=== PATIENT | female | born 1940 | race Caucasian/White ===

== ENCOUNTER 2016-04-23 10:39 | Inpatient (IN) | payer MEDICARE, OTHER ==
--- NOTE | ~2016-04-23 | CR93 ---
[facility] A Service of [facility] & [facility] RADIOLOGY TEXT RESULTS PATIENT: FERMIN KENDRICK I LOCATION: [facility] [id number] : 38 UNIT #: [id number] AGE: [address]: Chris Baldwin MD SEX: F ORDER DR: [id number] [facility] [address] [facility]. [place], [place] [address] [id number] I MR#: [id number] Acc #: [id number] NAME: FERMIN KENDRICK I. : 1940 SEX: F STUDY DATE/TIME: 04/23/2016 2:56 UNIT: [facility] ROOM: [facility] STUDY DESCRIPTION: CR Elbow Min 3 Views Lt Attending Physician: Chris Baldwin M.D. Ordering Physician: Chris Baldwin M.D. Primary Care Physician: Yumiko Harmon M.D. MEDICAL IMAGING REPORT This report is preliminary unless electronic signature is present EXAM Left elbow 04/23/2016 INDICATION Hardware replacement. TECHNIQUE 4 small field of view spot fluoroscopic images from an intraoperative procedure performed by Dr. Baldwin 04/23/2016 were submitted for review. FINDINGS Notes indicate that approximately 0.18 minutes of fluoroscopy time was used in the case. 4 images from the procedure was saved to the [employer] [facility] system. The images demonstrate postop changes of elbow replacement with surgical hardware anchored in the radius and ulna. Please refer to the operative report of the surgeon for further details. IMPRESSION 1. Intraoperative images from an elbow procedure performed by Dr. Baldwin 04/23/2016. Please see the operative report of the surgeon for further details. 2. Notes indicate 0.18 minutes of fluoroscopy time was used in the case. 4 images were saved to the [employer] [facility] [employer] system from the procedure. Dictated by... Froy Jensen M.D. THIS IS AN ELECTRONICALLY VERIFIED REPORT Froy Jensen M.D. at 04/24/2016 11:46 AM HARRY/jackie TD: 04/24/2016 11:03 STS. [facility] A Service of [facility] & [facility] RADIOLOGY TEXT RESULTS PATIENT: FERMIN KENDRICK I LOCATION: [place] [address] : 38 UNIT #: [id number] AGE: [address]: Chris Baldwin MD SEX: F ORDER DR: JOB #: [id number] MEDICAL IMAGING REPORT COPY
--- NOTE | ~2016-04-23 | OR ---
Unit #: [id number] #: [id number] Patient: FERMIN KENDRICK I [id number] [address] [address] [id number] MR#: [id number] NAME: FERMIN KENDIRCK I. ROOM: [facility] Date of Procedure: 04/23/2016 Admission Date: 04/23/2016 Surgeon: Chris Baldwin M.D. : 1940 Attending Physician: Chris Baldwin M.D. Primary Care Physician: Yumiko Harmon M.D. OPERATIVE REPORT PREOPERATIVE DIAGNOSES 1. 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 POSTOPERATIVE DIAGNOSES 1. 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 PROCEDURES PERFORMED 1. Left elbow arthrotomy with capsular release including capsulectomy. 2. Left elbow heterotopic ossification excision of both anterior and posterior to the humerus. TOURNIQUET TIME 89 minutes. ESTIMATED BLOOD LOSS 50 mL. COMPLICATIONS None apparent. DRAINS Subcutaneous medium Hemovac x1. INDICATIONS FOR PROCEDURE Ms. Kendrick is a 75-year-old female, who has undergone a left total elbow replacement for comminuted intraarticular distal humerus fracture. She has developed a significant amount of postoperative heterotopic ossification limiting her elbow extension to 60 degrees. Elbow flexion is limited as well. We discussed return to the operating room for resection of the heterotopic ossification as well as the resection of any capsular contracture. Risks, benefits, and alternatives have been reviewed including, but not limited to, proximity of the neurovascular structures as well as the potential for contaminating or re-infecting the total elbow components. She voiced agreement and understanding and elected to proceed. DESCRIPTION OF PROCEDURE The patient was identified in the preoperative holding area. The operative site was marked. A regional anesthetic block was performed. Preoperative antibiotics were administered. The patient was brought to the operating room and placed supine on the operating table. A general Unit #: [id number] #: [id number] Patient: FERMIN KENDRICK I anesthetic was induced. The patient was positioned supine with the arm across the chest. The tourniquet was applied to the left upper extremity, which was then prepped and draped in sterile fashion. The arm was exsanguinated and the tourniquet inflated. The previous surgical incision was reopened. Medial and lateral skin flaps were developed. Dissection was carried down to the triceps. Ethibond sutures were noted from the previous triceps repair. Attention was then turned to the lateral aspect of the elbow. The lateral skin flap was further elevated and the lateral column approach was performed. The heterotopic ossification was readily identifiable along the lateral and anterior aspect of the distal humerus. The dissection was carried down along the radial head and then anterior to the ulnohumeral joint. The heterotopic ossification anteriorly was isolated and circumferentially dissected. There was significant capsular contractures to the anterior humerus. This was tediously dissected free and an anterior capsulectomy performed. Again, there were soft tissue adhesions and synovial tissue adherent from the anterior capsule to the humeral stem and heterotopic bone. Dissection was then carried posterior along the humerus as well, where more heterotopic bone was identified. The triceps was tediously elevated off the posterior humerus in across the prosthetic articulation. The humeral and ulnar components were both exposed from the lateral side. Combination of multiple osteotomes were used to elevate and resect the heterotopic ossification along the anterior humerus. This was a large single piece, which was removed. Multiple other smaller fragments were removed piecemeal. This reestablished the normal anterior humeral shaft and anterior flange of the total elbow component. Posteriorly, we resected bone along the posterior humerus as well as off the tip of the olecranon. We ultimately were able to establish 135 degrees or more of elbow flexion and full elbow extension. Some slight further soft tissue releases were performed and the elbow was taken into extension. The elbow at rest had approximately 20 to 30 degrees of extension, which was limited by passive tension on the soft tissues. This did however easily fully extend out to neutral without any excessive force or tension. Intraoperative fluoroscopy was utilized to confirm satisfactory resection of all heterotopic bone and confirmed no areas of bony impingement radiographically. This was also confirmed by direct digital palpation of the ulnohumeral joint in extension. The tourniquet was then deflated. The wound was irrigated with Betadine lavage followed by pulsatile lavage. The lateral arthrotomy was then closed, which included the common extensor mass back to the triceps fascia. The subcutaneous tissues were closed with 2-0 Vicryl over a medium Hemovac drain. The skin was reapproximated with 3-0 nylon in a horizontal mattress fashion. The patient was placed in a soft dressing to permit early range of motion. DISPOSITION Stable to the recovery room. Plan for heterotopic ossification prophylaxis with radiation tomorrow. Dictated by... Chris Baldwin M.D. Unit #: [id number] #: [id number] Patient: FERMIN KENDRICK Sage RASHID/molly TD: 04/24/2016 04:45 JOB #: [id number] OPERATIVE REPORT X Chris Baldwin MD PROCEDURE OPERATIVE NOTE
--- NOTE | ~2016-04-23 | DS ---
Unit #: [id number] #: [id number] Patient: FERMIN KENDRICK I [id number] [address] [place], [place] [address] [id number] MR#: [id number] NAME: FERMIN KENDRICK I. ROOM: [facility] Age: 75 Sex: F Admission Date: 04/23/2016 : 1940 Discharge Date: 04/25/2016 Attending Physician: Chris Baldwin M.D. Primary Care Physician: Yumiko Harmon M.D. DISCHARGE SUMMARY ADMITTING DIAGNOSES 1. 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 DISCHARGE DIAGNOSES 1. Left elbow heterotopic ossification, status post left elbow arthrotomy with capsular relief including capsulectomy. 2. Left elbow heterotopic ossification excision of both anterior and posterior humerus. SECONDARY DIAGNOSES 1. Type 2 diabetes mellitus. 2. Depression. 3. Hypertension. 4. Hyperlipidemia. 5. Hypothyroidism. 6. Vitamin D deficiency. ATTENDING Dr. Baldwin - Orthopedic Surgery. PROCEDURE On 04/23/2016, the patient underwent a left elbow arthrotomy with capsular release including capsulectomy and left elbow heterotopic ossification excision of both anterior and posterior humerus. Please see operative report for further details. BRIEF HISTORY Ms. Kendrick is a 75-year-old female who underwent a left total elbow replacement for a comminuted intraarticular distal humerus fracture. After surgery, she developed a significant amount of postoperative heterotopic ossification which limited her elbow extension to 60 degrees. Her elbow flexion was limited as well. Dr. Baldwin discussed with the patient returning to the OR for resection of the heterotopic ossification as well as resection of any capsular contracture. The risks, benefits, and alternatives were discussed with the patient and she elected to proceed with surgery on 04/23/2016. HOSPITAL COURSE On the night of surgery, the patient was transferred to the orthopedic unit for postoperative care. The patient remained stable. On postop day #1, the patient's vital signs remained stable. She was awake, alert and oriented x3, in no acute distress. Her dressing was Unit #: [id number] #: [id number] Patient: FERMIN KENDRICK I clean, dry and intact. She had a small amount of serosanguineous drainage in the Hemovac drain. She had moderate swelling in the left hand. She was neurovascularly intact in the median, ulnar and radial nerves. She had normal sensation to light touch in all five digits. She was still having a significant amount of left elbow pain and did not feel that she was ready to go home at this time. Her white blood cell count was 7.9 and her hemoglobin is 10.4. She worked with physical therapy on left elbow passive range of motion as well as ambulation. She also was seen by Dr. Diaz with Radiology Oncology to have radiation of the left elbow to reduce any repeat incidents of heterotopic ossification of the left elbow. Her Hemovac drain was DC'd in the room. She was on SCDs for DVT prophylaxis. On postop day #2, the patient's vital signs remained stable. She was awake, alert and oriented x3, in no acute distress. Her left elbow pain was better controlled overnight and she feels that she is ready to DC home. Her incision was clean, dry and intact. There was no surrounding erythema or warmth. She had mild to moderate swelling in the left hand. She is neurovascularly intact in the median, ulnar and radial nerves. She had normal sensation to light touch in all five digits. Her white blood cell count was 7.8. Hemoglobin was 10.1. She remained partial weight bearing of the left elbow. She feels comfortable performing the passive range of motion exercises at this time. She is still in SCDs for DVT prophylaxis. CONDITION AT DISCHARGE Stable. DISPOSITION The patient will be DC'd home where she will be staying with a friend who can help with postoperative care. DISCHARGE MEDICATIONS Include: 1. Sertraline 100 mg p.o. daily. 2. Metformin 500 mg p.o. b.i.d. 3. Norvasc 10 mg p.o. daily. 4. TriCor 145 mg p.o. daily. 5. Lipitor 20 mg p.o. daily. 6. Cozaar 25 mg p.o. daily. 7. Evista 60 mg p.o. daily. 8. Synthroid 25 mcg p.o. daily. 9. Vitamin D 400 units p.o. daily. 10. Vitamin D2 capsule, 55 units p.o. weekly. 11. Percocet 5/325 mg, one to two tabs p.o. q. 4 hours p.r.n., dispensed #65. The patient was sent home with a prescription for Percocet. DISCHARGE INSTRUCTIONS The patient will be discharged home. She will remain partial weight bearing of the left elbow. She will perform left elbow passive range of motion exercises two to three times per day. She will keep her surgical dressing in place until her followup appointment. She may change the Jake wrap on her dressing as needed if it becomes soiled. She may shower but she is not to not get her dressing wet. She will keep an occlusive dressing over the left upper extremity when showering. She will follow up with Dr. Baldwin in two weeks time for repeat x-rays of the left elbow. Unit #: [id number] #: [id number] Patient: FERMIN KENDRICK I Dictated by... Nancy Madrigal APRN for Yas Gutiérrez/bahman TD: 04/25/2016 11:25 JOB #: [id number] DISCHARGE SUMMARY X NANCY MADRIGAL APRN X DISCHARGE SUMMARY
--- NOTE | ~2016-04-23 | CO ---
Unit #: [id number] #: [id number] Patient: FERMIN KENDRICK I [id number] [address] [place], [place] [address] [id number] MR#: [id number] NAME: FERMIN KENDRICK I. ROOM: 460 Age: 75 Sex: F Admission Date: 04/23/2016 : 1940 Attending Physician: Chris Baldwin M.D. Primary Care Physician: Yumiko Harmon M.D. Consultation Date: 04/24/2016 CONSULTATION REPORT DIAGNOSIS Status post left total elbow arthroplasty with heterotopic bone formation. CHIEF COMPLAINT Left arm pain and reduced range of motion. HISTORY OF PRESENT ILLNESS Ms. Fermin Kendrick is a pleasant, 75-year-old female who had a fall and subsequently presented to the emergency room with comminuted fracture of the left elbow. Patient, specifically, had involvement of the distal humerus with an intraarticular fracture. She underwent open reduction and internal fixation with left total elbow arthroplasty dated 10/31/15. Patient has done reasonably well, but subsequently began having pain and decreased range of motion of the left elbow. She has been evaluated with multiple films including January as well as April of 2016. She now has fairly extensive heterotopic ossification about the left elbow. As a result, patient was seen by Dr. Baldwin and taken to surgery 04/23/16 where she had performed left elbow arthrotomy with capsule release and capsulectomy as well as removal of heterotopic ossification, both anteriorly and posteriorly to the humerus. Patient is in the postoperative period. She is relative stable. She has a Hemovac in place to the left elbow. I have been asked to see her regarding the possibility of postoperative radiotherapy. RECOMMENDATIONS Ms. Kendrick is a candidate for postoperative radiation to the left elbow. This has the capability of significantly reducing incidents of repeat heterotopic ossification. Patients who have had HO in the past are at highest surgical risk for redeveloping this process. My plan would be to administer total dose of 800 Centigray to the left elbow. Special care will be taken to avoid the incision site as not to impede surgical healing. Patient has pressure bandage in place, which will not be disrupted at this time. Various side effects and complications associated with this procedure, which are few, are discussed in detail to Ms. Kendrick. She understands and accepts these things. I will proceed with therapy at this time. PAST MEDICAL HISTORY Remarkable for bilateral knee replacements, left total shoulder repair with reversal. Patient suffers from diabetes mellitus, hypertension, osteoarthritis, a thyroid disorder, and osteopenia. MEDICATIONS Include: Unit #: [id number] #: [id number] Patient: FERMIN KENDRICK I 1. Zoloft. 2. Metformin. 3. Norvasc. 4. TriCor. 5. Lipitor. 6. Cozaar. 7. Evista. 8. Vitamin D2. 9. Percocet for pain. ALLERGIES Patient has drug allergies to lisinopril, morphine, and aspirin. NUTRITIONAL STATUS Stable. PAIN MANAGEMENT Currently 11/02 due to postoperative pain. SOCIAL HISTORY Patient is a . She lost her four months ago and is still grieving. She has no children. She does not smoke. She does not drink. She lives alone and cares for herself. FAMILY HISTORY Noncontributory. REVIEW OF SYSTEMS Patient denies seizure activity, headache, or problems associated with previous fall. She denies previous malignancies. She denies chest pain or GI or complaints. She has significant swelling of the left hand. PHYSICAL EXAMINATION VITAL SIGNS: BP 126/86, heart rate 97, respirations 16, temperature 98, O2 saturation 98%, weight 64.6 kg, and height 157 cm. NECK: Without (1) adenopathy. HEENT: Pupils are equal, round, and reactive to light and accommodation. Extraocular movements are within normal limits. LUNGS: Breath sounds are clear. HEART: Patient has mild tachycardia on exam. EXTREMITIES: The right hand and arm are examined and found to be without edema. Normal pulses. The left arm is examined and found to have pressure bandage extending from level of humerus all the way down to the hand. There is a Davol Hemovac drain in place with minimal drainage at this time. Pulses are good in the left hand, though the hand is significantly swollen. Patient ambulates without difficulty at this time and has no gross lower extremity edema. Approximately 40 minutes spent discussing case with patient. Dictated by... Dennis Diaz M.D. Desirae TD: 04/24/2016 10:23 Unit #: [id number] #: [id number] Patient: FERMIN KENDRICK I JOB #: [id number] CONSULTATION REPORT X Dennis Diaz MD CONSULTATION REPORT
[~2016-04-23 10:39] MED LIST: ATACAND PO; COZAAR25 MG PO; EVISTA60 M1 PO; EVISTA60 MG PO; GLUCOPHAGE500 MG PO; LIPITOR PO; LIPITOR20 MG PO; MACROBID100 MG DOB; NORVASC10 MG PO; OMEGA 3 FISH OI1 CAP PO; PERCOCET 5-3251 TAB PO; SERTRALINE HCL50 M1 PO; SYNTHROID25 MCG PO; TRICOR145 MG PO; VICODIN 5/500 T1 TAB PO; VICODIN PO; VITAMIN D PO; VITAMIN D2400 UNIT PO; VITAMIN D250000 UNIT PO; ZOLOFT PO
[2016-04-24 03:51] LABS: BASOPHIL% 0.3 % (0-2.5); EOSINOPHIL# 0.1 X10e3 (0-0.7); EOSINOPHIL% 1.5 % (0.0-7.0); HEMATOCRIT 30.4 % (35.0-45.0); HEMOGLOBIN 10.4 gm/dL (12.0-16.0); LYMPHOCYTE# 2.3 X10e3 (1.0-3.5); LYMPHOCYTE% 29.1 % (17.0-45.0); MEAN CORPUSCULAR HEMOGLOBIN 32.5 PG (28-34); MEAN CORPUSCULAR HGB CONC 34.2 g/dL (30-36); MEAN PLATELET VOLUME 9.6 FL (6.5-11.5); MONOCYTE# 0.8 X10e3 (0-1.0); MONOCYTE% 9.8 % (3.0-12.0); NEUTROPHIL# 4.7 X10e3 (1.5-7.1); NEUTROPHIL% 59.3 % (40-75); PLATELET COUNT 206 X10e3 (140-420); RED BLOOD COUNT 3.19 X10e (3.90-5.30); RED CELL DISTRIBUTION WIDTH 12.9 % (11.0-15.5); WHITE BLOOD COUNT 7.9 X10e3 (4.0-10.5)
[2016-04-24 03:56] LABS: DIFF IND NO
[2016-04-25 04:06] LABS: BASOPHIL% 0.3 % (0-2.5); EOSINOPHIL# 0.2 X10e3 (0-0.7); EOSINOPHIL% 2.3 % (0.0-7.0); HEMOGLOBIN 10.1 gm/dL (12.0-16.0); LYMPHOCYTE# 2.5 X10e3 (1.0-3.5); LYMPHOCYTE% 32.5 % (17.0-45.0); MEAN CELL VOLUME 95.2 FL (83-96); MEAN CORPUSCULAR HEMOGLOBIN 32.2 PG (28-34); MEAN CORPUSCULAR HGB CONC 33.8 g/dL (30-36); MEAN PLATELET VOLUME 8.8 FL (6.5-11.5); MONOCYTE# 0.7 X10e3 (0-1.0); MONOCYTE% 9.4 % (3.0-12.0); NEUTROPHIL# 4.3 X10e3 (1.5-7.1); NEUTROPHIL% 55.5 % (40-75); PLATELET COUNT 197 X10e3 (140-420); RED BLOOD COUNT 3.15 X10e (3.90-5.30); RED CELL DISTRIBUTION WIDTH 12.8 % (11.0-15.5); WHITE BLOOD COUNT 7.8 X10e3 (4.0-10.5)
[2016-04-25 04:07] LABS: DIFF IND NO
[2016-04-25] MEDS ORDERED: PERCOCET5/325 PO (10:59)
== END 2016-04-25 11:29 | disposition home or self-care (01) | DRG 493 ==
LOC: CSUR 10:39 → CPACUOF 15:30 → C4B 16:10
PROVIDERS: Nurse Practitioner; Orthopaedic Surgery
PROC: 0PBG0ZZ Excision of Left Humeral Shaft, Open Approach (ICD-10-PCS; 2016-04-23)
PROC: 0RBM0ZZ Excision of Left Elbow Joint, Open Approach (ICD-10-PCS; principal; 2016-04-23 12:30)
DX: M89.8X9 Other specified disorders of bone, unspecified site (principal); S42.402A Unspecified fracture of lower end of left humerus, initial encounter for closed fracture; E11.40 Type 2 diabetes mellitus with diabetic neuropathy, unspecified; Z96.622 Presence of left artificial elbow joint; F07.81 Postconcussional syndrome; R41.3 Other amnesia; Z79.84 Long term (current) use of oral hypoglycemic drugs; I10 Essential (primary) hypertension; E03.9 Hypothyroidism, unspecified; E78.5 Hyperlipidemia, unspecified; Z87.891 Personal history of nicotine dependence; F32.9 Major depressive disorder, single episode, unspecified; W19.XXXA Unspecified fall, initial encounter; Z96.653 Presence of artificial knee joint, bilateral; M85.80 Other specified disorders of bone density and structure, unspecified site; E55.9 Vitamin D deficiency, unspecified
CPT/HCPCS: 73080; 76000; 82947; 85025; 94010; 94760; 94761; J0131; J0690; J1170; J1815; J2250; J2370; J2795; J3010

== ENCOUNTER → 2016-07-03 | Outpatient (CLI) | payer MEDICARE, OTHER ==
[~2016-07-03] MED LIST changes: +ACETAMINOPHEN PO; +ACETAMINOPHEN500 M3 PO; +ACETAMINOPHEN500 M7 PO; +ACETAMINOPHEN650 M3 PO; +COMBIVENT U/D3 M1 INH; +METFORMIN PO; +PATIENT'S PHARMACY; +PERCOCET5/325 PO; +PREDNISONE PO; +ZOLOFT100 MG PO
[2016-07-03 09:17] LABS: ALBUMIN SERUM 3.8 g/dL (3.5-5.0); BILIRUBIN,TOTAL 0.5 mg/dL (0.2-2.0); BUN/CREATININE RATIO 38.75; CALCIUM SERUM 9.8 mg/dL (8.4-10.2); CREATININE SERUM 0.8 mg/dL (0.6-1.4); GLOM FILT RATE Estimated 71.2 mL/min (>60); POTASSIUM 4.3 mmol/L (3.5-5.1); PROTEIN TOTAL SERUM 6.9 g/dL (6.0-8.3)
[2016-07-03 13:35] LABS: URINE CREATININE 43.7 mg/dL
[2016-07-03 13:36] LABS: URINE 24 HOUR CREATININE CALC 0.8 G/24HR (0.7-2.0)
[2016-07-06 05:33] LABS: URINE CALCIUM 11.9 mg/dL (())
[2016-07-09 11:34] LABS: CALCIUM (PTHINTACT) 9.5 mg/dL (8.6-10.4)
== END | disposition home or self-care (01) ==
LOC: CLAB 07:44
PROVIDERS: Internal Medicine Endocrinology, Diabetes & Metabolism
DX: E55.9 Vitamin D deficiency, unspecified (principal); E03.9 Hypothyroidism, unspecified; E21.3 Hyperparathyroidism, unspecified
CPT/HCPCS: 36415; 80053; 82306; 82310; 82340; 82570; 82652; 83036; 83970

== ENCOUNTER → 2016-08-29 | Outpatient (CLI) | payer MEDICARE, OTHER ==
--- NOTE | ~2016-08-29 | MY29 ---
[facility] A Service of [facility] & [facility] RADIOLOGY TEXT RESULTS PATIENT: FERMIN KENDRICK I LOCATION: [facility] : 38 UNIT #: [id number] AGE: [address]: Marvin Chinchilla MD SEX: F ORDER DR: [id number] [facility] [address] [facility]. [place], [place] [address] [id number] O MR#: [id number] Acc #: [id number] NAME: FERMIN KENDRICK I. : 1940 SEX: F STUDY DATE/TIME: 08/29/2016 12:25 UNIT: [facility] ROOM: STUDY DESCRIPTION: MY [facility] SCREENING W/ CAD BILAT Attending Physician: Concepcion Chinchilla M.D. Referring Physician: Concepcion Chinchilla M.D. Ordering Physician: Concepcion Chinchilla M.D. Primary Care Physician: Yumiko Harmon M.D. MEDICAL IMAGING REPORT This report is preliminary unless electronic signature is present EXAM Digital screening mammogram 08/29/2016 HISTORY 75-year-old woman, no risk elevation. Annual screen. COMPARISON STUDIES Comparison mammograms date to 12/24/2005 with most recent 11/09/2014. FINDINGS Digital imaging of each breast was completed utilizing screening protocol. Review includes FDA-approved CAD device. Breast parenchyma is heterogeneously dense with a small nodular pattern in each breast. Subareolar duct prominence is also noted bilaterally. I see no interval occurring mass. There are no suspicious microcalcifications and no suspicious architectural deformity. IMPRESSION Stable benign mammogram. Annual screening recommended. BIRADS II Patients over the age of 40 are entered into a reminder system with target due date for the next mammogram. A result letter will also be sent to the patient. BIRADS: 2 - Benign finding Dictated by... Vinny Larson M.D. THIS IS AN ELECTRONICALLY VERIFIED REPORT Vinny Larson M.D. at 09/05/2016 7:12 AM LAVERNE/matt [facility] A Service of [facility] & [facility] RADIOLOGY TEXT RESULTS PATIENT: FERMIN KENDRICK I LOCATION: [facility] : 38 UNIT #: [id number] AGE: [address]: Marvin Chinchilla MD SEX: F ORDER DR: TD: 08/29/2016 16:05 JOB #: [id number] MEDICAL IMAGING REPORT Page 1 of 1 COPY
--- NOTE | ~2016-08-29 | BD1 ---
[facility] A Service of [facility] & [facility] RADIOLOGY TEXT RESULTS PATIENT: FERMIN KENDRICK I LOCATION: [facility] : 38 UNIT #: [id number] AGE: [address]: Marvin Chinchilla MD SEX: F ORDER DR: [id number] [facility] [address] [facility] [place], [place] [address] [id number] O MR#: [id number] Acc #: [id number] NAME: FERMIN KENDRICK : 1940 SEX: F STUDY DATE/TIME: 08/29/2016 12:42 UNIT: [facility] ROOM: STUDY DESCRIPTION: BD Dexa Bone Dens 1+ Site Attending Physician: Concepcion Chinchilla M.D. Referring Physician: Concepcion Chinchilla M.D. Ordering Physician: Concepcion Chinchilla M.D. Primary Care Physician: Yumiko Harmon M.D. MEDICAL IMAGING REPORT This report is preliminary unless electronic signature is present EXAM DXA study plus one site. CLINICAL HISTORY 75-year-old female patient, 5'2", weight 140, white, with a family history of osteoporosis and a history of left elbow fracture in the past 10 years. TECHNIQUE Imaging obtained of the left hip and left distal forearm because of metal in lower back. Bone densitometry performed left hip and left distal forearm on Hologic system. COMPARISON Comparison is made to 06/28/2014 exam. There is a baseline study from 11/23/2007. FINDINGS Total bone mineral density measured distal left forearm is 0.489 g/sq cm with a T-score of -1.7. This is 1.3% changed positive from previous but minus 2.8% change from baseline. The total bone mineral density at the left hip region is 0.818 g/sq cm with a T-score of -1.0. At the neck, it is 0.652 with a T-score of -1.8. On comparison to prior, this is a 3.8% positive change and on comparison to baseline this is minus 6.3%. By WHO classification, patient has osteopenia with increased fracture risk. IMPRESSION 1. This patient has osteopenia by WHO classification with increased fracture risk. On comparison to most recent study from 2015, mild overall improvement in bone mineral density. Measurements are provided above. [facility] A Service of [facility] & [facility] RADIOLOGY TEXT RESULTS PATIENT: FERMIN KENDRICK I LOCATION: [facility] #: [id number] : 36 UNIT #: [id number] AGE: [address]: Marvin Chinchilla MD SEX: F ORDER DR: Dictated by... Merlyn Balderas M.D. THIS IS AN ELECTRONICALLY VERIFIED REPORT Merlyn Balderas M.D. at 08/31/2016 7:29 AM ANGEL/rafy TD: 08/30/2016 23:02 JOB #: [id number] MEDICAL IMAGING REPORT Page 1 of 1 COPY
== END | disposition home or self-care (01) ==
LOC: CWCC 11:40
DX: Z12.31 Encounter for screening mammogram for malignant neoplasm of breast (principal); M81.0 Age-related osteoporosis without current pathological fracture; M85.80 Other specified disorders of bone density and structure, unspecified site
CPT/HCPCS: 77080; G0202

== ENCOUNTER 2016-10-13 11:57 | Inpatient (IN) | payer MEDICARE, OTHER ==
[~2016-10-13] VITALS: Ht 157.5 cm; Wt 64.4 kg
--- NOTE | ~2016-10-13 | EKG ---
PATIENT: FERMIN KENDRICK UNIT #: [id number] Ventricular Rate: 90 BPM Atrial Rate: 90 BPM P-R Interval: 160 ms QRS Duration: 94 ms Q-T Interval: 384 ms QTC Calculation(Bezet): 469 ms P [place]: 29 degrees Calculated R [place]: 9 degrees Calculated T [place]: 29 degrees Diagnosis Line: Normal sinus rhythm Diagnosis Line: Possible Left atrial enlargement Diagnosis Line: Left ventricular hypertrophy Diagnosis Line: Abnormal ECG Diagnosis Line: When compared with ECG of 26-OCT-2015 12:51, Diagnosis Line: Diagnosis Line: Confirmed by JAYSHREE BUCIO MD ([id number]) on 10/13/2016 Diagnosis Line: 10:15:29 PM INTERPRETING MD: FORTUNATO FORTUNE
--- NOTE | ~2016-10-13 | HP ---
Unit #: [id number] #: [id number] Patient: FERMIN KENDRICK I [id number] [address] [place], [place] [address] [id number] MR#: [id number] NAME: FERMIN KENDRICK I. ROOM: 87678 Age: 76 Sex: F Admission Date: 10/13/2016 : 1940 Attending Physician: Sandy Abrams M.D. Primary Care Physician: Yumiko Harmon M.D. HISTORY AND PHYSICAL CHIEF COMPLAINT Shortness of breath. HISTORY OF PRESENT ILLNESS The patient is a 76-year-old female with a past medical history of hypertension, hyperlipidemia, diabetes, obstructive sleep apnea, hypothyroidism, and arthritis, brought to the emergency room complaining of nonproductive cough. The patient stated that patient has been having cough since May of this year associated with allergic rhinitis. However, the patient is also complaining of shortness of breath for the last three weeks. The patient was sent to the PCP office and was saturating 80% to 81% on room air. The patient also complains of exertional dyspnea on ambulation and unable to walk up stairs associated with shortness of breath. The patient was found to have right middle lobe to right lower lobe interstitial edema and is being admitted for the above reasons with hypoxic respiratory failure. Denies any fever, denies any chills, and denies any nausea, vomiting, diaphoresis, or headache. PAST MEDICAL HISTORY 1. Hypertension. 2. Hyperlipidemia. 3. Diabetes. 4. Obstructive sleep apnea. 5. Hypothyroidism. PAST SURGICAL HISTORY 1. Left shoulder surgery. 2. Femur fracture repair. 3. Lumbar fusion. SOCIAL HISTORY Patient lives with her . There is no tobacco or alcohol use. Remote history of tobacco. Denies any illicit drug abuse. FAMILY HISTORY Notable for dad having asthma. ALLERGIES Aspirin causes hives. Morphine is also listed as an allergy, as well as lisinopril and shellfish. HOME MEDICATIONS 1. Lipitor. 2. Norvasc. Unit #: [id number] #: [id number] Patient: FERMIN KENDRICK I 3. Cozaar. 4. Evista. 5. Zoloft. 6. Glucophage. 7. TriCor. 8. Vitamin D2. REVIEW OF SYSTEMS Positive for shortness of breath, positive for nonproductive cough, and positive for respiratory distress. Denies any chest pain, denies any nausea or vomiting, denies any headache, and denies any weakness. All other systems have been reviewed and are negative. PHYSICAL EXAMINATION GENERAL: Patient is lying in bed not in acute distress. VITAL SIGNS: Temperature 97.6, pulse 105, respiratory rate 22, blood pressure 137/72, and saturating 92% on room air. HEENT: Head atraumatic, normocephalic. Pupils equal, round, and reactive to light and accommodation. Dry mucous membranes. NECK: Supple. LUNGS: Decreased air entry at the bases. Positive for wheezing and rhonchi intermittently. HEART: Regular rate and rhythm. ABDOMEN: Soft. Positive bowel sounds. EXTREMITIES: Positive for trace edema. No cyanosis, no clubbing. NEUROLOGIC: Alert, awake, and oriented. No gross focal motor deficit. DIAGNOSTIC STUDIES LABORATORY: WBC 12.2, hemoglobin 13.4, hematocrit 40.2, and platelets 405,000. Troponin less than 0.05. Lactic acid is 1.5. Sodium 138, potassium 4, chloride 104, bicarb 25, glucose 109, BUN 27, creatinine 0.9, AST 24, ALT 14, alkaline phosphatase 39, and albumin 3.7. BNP is 27. IMAGING: Chest x-ray shows right middle lobe to right lower lobe interstitial edema. CARDIOLOGY: EKG shows normal sinus rhythm at a rate of 90 beats per minute and left ventricular hypertrophy. ASSESSMENT 1. Hypoxic respiratory failure with saturations in the range of 81% to 82% on room air and right middle lobe to right lower lobe interstitial pneumonia. 2. Hypertension. PLAN Admit the patient to inpatient with telemetry. Continue IV antibiotics with Zosyn and Zithromax. Patient has been seen by Pulmonary, Dr. Junior, for sleep apnea. Will have a Pulmonary consult for the hypoxic respiratory failure. Check a procalcitonin. Low-dose sliding scale with Accu-Cheks a.c. and at bedtime. Repeat the labs again in the morning, and further recommendations will follow. Dictated by Yas Collins Unit #: [id number] #: [id number] Patient: FERMIN KENDRICK I TD: 10/13/2016 16:16 JOB #: [id number] HISTORY AND PHYSICAL Page 1 of 1 X SANDY ABRAMS MD HISTORY AND PHYSICAL
--- NOTE | ~2016-10-13 | CT57 ---
[facility] A Service of [facility] & [facility] RADIOLOGY TEXT RESULTS PATIENT: FERMIN KENDRICK I LOCATION: [facility] 326- : 38 UNIT #: [id number] AGE: [address]: Jazmyn Tony MD SEX: F ORDER DR: [id number] [facility] [address] [facility]. [place], [place] [address] [id number] I MR#: [id number] Acc #: [id number] NAME: FERMIN KENDRICK I. : 1940 SEX: F STUDY DATE/TIME: 10/14/2016 16:57 UNIT: [address] [facility]OM[facility] STUDY DESCRIPTION: CT Chest Wo Cont Attending Physician: Jazmyn Tony M.D. Ordering Physician: Karthikeyan Meek M.D. Primary Care Physician: Yumiko Harmon M.D. MEDICAL IMAGING REPORT This report is preliminary unless electronic signature is present EXAM Chest CT without contrast. HISTORY Nonproductive cough since May 2016 with shortness breath for the past 3 weeks and hypoxia. TECHNIQUE Axial images were obtained without contrast and evaluated at lung and mediastinal windows. No previous chest CTs are available for comparison. Thin detailed high-resolution imaging was obtained both prone and supine. This CT exam was performed with one or more of the following radiation dose reduction techniques: automatic exposure control, adjustment of mA and/or kV according to patient size, and iterative reconstruction. FINDINGS Chest images at mediastinal window show coronary artery calcification quite extensively. There is no evidence of pleural or pericardial fluid. No adenopathy noted. Lung window imaging with high-resolution technique shows extensive interstitial infiltrates bilaterally. These infiltrates are generally worse at the bases than the apices with honeycombing seen at both lung bases. Traction bronchiectasis is seen in both lower lung ramos as well. No suspicious masses or ground-glass infiltrates are noted. Comparison with a previous abdomen and pelvis CT from 03/04/2011 shows significant worsening at both lung bases since the previous examination. The progression over time and pattern of disease is typical of usual interstitial pneumonitis. IMPRESSION Bilateral extensive interstitial fibrosis. The progression of disease over time since previous abdomen scan in 2011 in the appearance of the STS. [facility] A Service of [facility] & [facility] RADIOLOGY TEXT RESULTS PATIENT: FERMIN KENDRICK I LOCATION: A 326-01 : 38 UNIT #: [id number] AGE: [address]: Jazmyn Tony MD SEX: F ORDER DR: infiltrates is typical of usual interstitial pneumonitis. Dictated by... Russel Elizondo M.D. THIS IS AN ELECTRONICALLY VERIFIED REPORT Russel Elizondo M.D. at 10/16/2016 7:07 AM AGATA/jessika TD: 10/15/2016 08:35 JOB #: [id number] MEDICAL IMAGING REPORT Page 1 of 1 COPY
--- NOTE | ~2016-10-13 | CO ---
Unit #: [id number] #: [id number] Patient: FERMIN KENDRICK I [id number] [facility]. [place], [place] [address] [id number] I MR#: [id number] NAME: FERMIN KENDRICK I. ROOM: 326 Age: 76 Sex: F Admission Date: 10/13/2016 : 1940 Attending Physician: Jazmyn Tony M.D. Primary Care Physician: Yumiko Harmon M.D. Consultation Date: 10/14/2016 CONSULTATION REPORT REASON FOR CONSULTATION Respiratory failure, possible pneumonia. HISTORY OF PRESENT ILLNESS Ms. 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 She had some seasonal allergic rhinitis symptoms earlier in the year, but no real shortness of breath. Three weeks ago, she developed some dyspnea on exertion. She had a nonproductive cough, ultimately presented to her family physician's office and was found to be hypoxemic. She was sent to the emergency room, where her chest x-ray was read as possible pneumonia. She was placed on antibiotics and admitted. She has a nonproductive cough. No wheezing. No hemoptysis. No chest pain. She denies any exposures. PAST MEDICAL HISTORY Remarkable for hypertension, "prediabetes" and she sees an noise tester for that, hyperlipidemia, obstructive sleep apnea currently not on CPAP after significant intentional weight loss, and hypothyroidism. ALLERGIES Aspirin, morphine, lisinopril, and shellfish. MEDICATIONS At home according to the EHR; Lipitor, Norvasc, Cozaar, Evista, Zoloft, Glucophage, TriCor, and vitamin D. 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 She is a never smoker. Does not drink. She denies any exposure to any chemical agent, asbestos, etc. FAMILY HISTORY Asthma. REVIEW OF SYSTEMS Primarily has dyspnea on exertion. No chest pain, palpitations, abdominal pain, melena, hematochezia, hematuria, dysuria, leg pain, swelling, focal weakness, paresthesias, fever, chills, or unintentional weight loss. She believes she does not snore anymore. PHYSICAL EXAMINATION GENERAL: Reveals a very pleasant lady, in no acute distress. VITAL SIGNS: She is afebrile, pulse 71, respiratory rate is 18, blood pressure is 158/74, 5 feet 2 inches, 141 pounds. Unit #: [id number] #: [id number] Patient: FERMIN KENDRICK I HEENT: Pupils are equal, round, and reactive to light. Sclerae anicteric. Head, atraumatic. She is edentulous with dentures in place. NECK: Supple. No supraclavicular or cervical adenopathy appreciated. CHEST: Inspiratory squeaks, which are evanescent. Fine crackles throughout. No definite consolidation. No definite wheeze. CARDIAC: Reveals regular rate and rhythm. There is a systolic murmur. ABDOMEN: Soft and nontender. No hepatomegaly or rebound. EXTREMITIES: Reveal no clubbing, cyanosis. Trace edema at worst. Calves are nontender. SKIN: Warm and dry without rash or diaphoresis. NEUROLOGIC: Grossly intact with no focal motor or sensory deficits. DIAGNOSTIC STUDIES IMAGING STUDIES: Chest x-ray with some very prominent interstitial changes. There is a suggestion of some nodular areas, but no deepti masslike areas. LABORATORY RESULTS: BUN is 27, creatinine 0.9, remainder of her CMP was normal. Lactic acid was 1.5. Procalcitonin was negligible. Cardiac enzymes negative. White blood cell count 12.2, remainder of her CBC was normal. No left shift. No eosinophilia. Urinalysis not performed. Blood cultures performed and are pending. CARDIOVASCULAR STUDIES: Rhythm strip, sinus. EKG, sinus. No definite acute ischemic changes. IMPRESSION 1. Acute hypoxemic respiratory failure suspect subacute by history. 2. Abnormal chest x-ray more of fibrotic pattern with some nodular densities. I am not convinced this represents typical pneumonia or at least a typical infectious pneumonia. 3. Obstructive sleep apnea, currently not on CPAP, fairly asymptomatic and possibly resolved with intentional weight loss. 4. Medical problems listed above. PLAN We will check sedimentation rate, ROMEO, rheumatoid factor, CALLI, and urine for hematuria. High-resolution CAT scan of the chest. For now, continue antibiotics. I will check a strep and Legionella urinary antigens. Consider respiratory pathogen panel, but at this institution it takes days to weeks to return, and therefore, clinically unhelpful. I suspect she will need a trial of steroids, but we will wait on above workup. Thank you very much for allowing me to participate in the care of Ms. Kendrick. Dictated by... Karthikeyan Meek M.D. WAQAS/molly TD: 10/15/2016 00:37 JOB #: [id number] Unit #: [id number] #: [id number] Patient: FERMIN KENDRICK I CONSULTATION REPORT Page 1 of 1 X Karthikeyan Meek MD CONSULTATION REPORT
--- NOTE | ~2016-10-13 | DS ---
Unit #: [id number] #: [id number] Patient: FERMIN KENDRICK I [id number] [address] [place], [place] [address] [id number] I MR#: [id number] NAME: FERMIN KENDRICK I. ROOM: 326 Age: 76 Sex: F Admission Date: 10/13/2016 : 1940 Discharge Date: 10/16/2016 Attending Physician: Jazmyn Tony M.D. Primary Care Physician: Yumiko Harmon M.D. DISCHARGE SUMMARY REASON FOR ADMISSION Shortness of breath. HISTORY OF PRESENT ILLNESS/HOSPITAL COURSE The patient is a very pleasant 76-year-old female with underlying history of hypertension, hyperlipidemia, diabetes, hypothyroidism, who was brought to the emergency department secondary to dyspnea/increased shortness of breath. She was seen and evaluated in her primary care physician office and was noted to have an O2 saturation of approximately 80% with marked exertional dyspnea and was subsequently sent to the hospital for further evaluation, and in an emergency room evaluation, the patient was found to have right middle lobe to right lower lobe edema, questionable pneumonia, she was admitted secondary to acute hypoxic respiratory failure. We placed consultation with [facility] for evaluation from a pulmonary standpoint. Ultimately the patient underwent high resolution CT chest on October 14, 2016. These findings were consistent with bilateral extensive interstitial fibrosis with progression of the disease over time since previous scan in 2011 was typical of interstitial pneumonitis. Secondary to advancing and progressive interstitial fibrosis, the patient was placed on O2, and at the time of discharge she will require oxygen at two liters at rest and four liters with exertion. At this point in time, she is medically stable. She was placed on IV Solu-Medrol while here. She will be given an additional prednisone burst at the time of discharge. She will also be discharged with a home nebulizer machine. She underwent a 2D echocardiogram for evaluation of dyspnea, this hospital admission, which did reveal ejection fraction of 50% to 55% with mild tricuspid regurgitation, otherwise essentially normal. She will be following up with Dr. Meek in approximately two weeks in regards to her interstitial fibrosis. Home oxygen will be set up at the time of discharge. FINAL DISCHARGE DIAGNOSES 1. Acute hypoxic respiratory failure. 2. Interstitial fibrosis/chronic respiratory failure. 3. History of hypertension. 4. Diabetes. 5. Hyperlipidemia. 6. Anxiety/depression. Unit #: [id number] #: [id number] Patient: FERMIN KENDRICK I 7. Allergic rhinitis history. FINAL DISCHARGE MEDICATIONS 1. DuoNeb aerosol solution q.4-6 p.r.n. 2. Tylenol 650 mg p.o. q.6 p.r.n. 3. Zoloft 100 mg p.o. daily 4. Glucophage 500 mg p.o. daily 5. Norvasc 10 mg p.o. daily 6. TriCor 145 mg p.o. daily 7. Lipitor 20 mg p.o. q.h.s. 8. Cozaar 25 mg p.o. daily 9. Evista 60 mg p.o. daily 10. Vitamin D 50,000 units p.o. weekly per the discretion of primary care physician 11. Prednisone 40 mg p.o. daily x5 day DISCHARGE CONDITION Stable. DISCHARGE DISPOSITION Home. FOLLOWUP Follow up with Dr. Meek in two weeks. Dictated by... Jazmyn Tony M.D. OLIVIA/benjamin TD: 10/17/2016 10:51 JOB #: [id number] DISCHARGE SUMMARY Page 1 of 1 X Jazmyn Tony MD X DISCHARGE SUMMARY
--- NOTE | ~2016-10-13 | CR72 ---
[facility] A Service of [facility] RADIOLOGY TEXT RESULTS PATIENT: FERMIN KENDRICK I LOCATION: [facility] : 38 UNIT #: [id number] AGE: [address]: Jazmyn Tony MD SEX: F ORDER DR: [id number] [facility] [address] [facility] [place], [place] [address] [id number] I MR#: [id number] Acc #: [id number] NAME: FERMIN KENDRICK I. : 1940 SEX: F STUDY DATE/TIME: 10/13/2016 12:46 UNIT: [facility] PCU ROOM: [facility] STUDY DESCRIPTION: CR Chest Single View Portable Attending Physician: Tremayne Abrams M.D. Ordering Physician: Russel Wheeler M.D. Primary Care Physician: Yumiko Harmon M.D. MEDICAL IMAGING REPORT This report is preliminary unless electronic signature is present EXAM AP portable chest DATE 10/13/2016 HISTORY Shortness breath for 3 weeks. Hypertension. COMPARISON AP portable chest 10/23/2015 FINDINGS Coarse interstitial thickening is seen within both lungs, greatest peripherally, greatest in the mid to lower lung zones. Interstitial findings are new since 10/23/2015. No dense lung consolidative changes are identified. Heart size is normal. No pleural effusion or pneumothorax. Left shoulder replacement. Surgical change of the right shoulder with advanced right shoulder degenerative changes. Multilevel degenerative changes are present within the thoracolumbar spine with diminished disc space height and endplate spurring. IMPRESSION Somewhat coarse peripheral interstitial thickening within the [id number] lung zones, new since 10/23/2015. The findings may represent changes of interstitial pneumonia superimposed upon emphysema. Short-term chest radiograph followup to document resolution is recommended. Surgical changes of both shoulders. Dictated by... Ping Varghese M.D. [facility] A Service of [facility] & [facility] RADIOLOGY TEXT RESULTS PATIENT: FERMIN KENDRICK I LOCATION: [facility] : 38 UNIT #: [id number] AGE: [address]: Jazmyn Tony MD SEX: F ORDER DR: THIS IS AN ELECTRONICALLY VERIFIED REPORT Ping Varghese M.D. at 10/16/2016 8:52 AM [facility]/river TD: 10/13/2016 22:29 JOB #: [id number] MEDICAL IMAGING REPORT Page 1 of 1 COPY
[~2016-10-13 11:57] MED LIST changes: -ACETAMINOPHEN PO; -ACETAMINOPHEN500 M3 PO; -ACETAMINOPHEN500 M7 PO; -ACETAMINOPHEN650 M3 PO; -COMBIVENT U/D3 M1 INH; -METFORMIN PO; -PATIENT'S PHARMACY; -PREDNISONE PO; -ZOLOFT100 MG PO
[2016-10-13 13:21] LABS: BASOPHIL# 0.1 X10e3 (0-0.3); BASOPHIL% 0.5 % (0-2.5); EOSINOPHIL# 0.4 X10e3 (0-0.7); EOSINOPHIL% 2.9 % (0.0-7.0); HEMATOCRIT 40.2 % (35.0-45.0); HEMOGLOBIN 13.4 gm/dL (12.0-16.0); LYMPHOCYTE# 2.5 X10e3 (1.0-3.5); LYMPHOCYTE% 20.7 % (17.0-45.0); MEAN CORPUSCULAR HEMOGLOBIN 30.6 PG (28-34); MEAN CORPUSCULAR HGB CONC 33.3 g/dL (30-36); MEAN PLATELET VOLUME 8.6 FL (6.5-11.5); MONOCYTE# 0.8 X10e3 (0-1.0); MONOCYTE% 6.6 % (3.0-12.0); NEUTROPHIL# 8.5 X10e3 (1.5-7.1); NEUTROPHIL% 69.3 % (40-75); PLATELET COUNT 405 X10e3 (140-420); RED BLOOD COUNT 4.37 X10e (3.90-5.30); RED CELL DISTRIBUTION WIDTH 13.4 % (11.0-15.5); WHITE BLOOD COUNT 12.2 X10e3 (4.0-10.5)
[2016-10-13 13:22] LABS: DIFF IND NO
[2016-10-13 13:35] LABS: POC - CKMB 1.2 ng/mL (0.0-7.9); POC - TROPONIN <0.05 ng/mL (<=0.05)
[2016-10-13] MEDS ORDERED: NORVASC10 MG PO (13:43)
[2016-10-13] MEDS ORDERED: COZAAR25 MG PO (13:43)
[2016-10-13] MEDS ORDERED: LIPITOR20 MG PO (13:43)
[2016-10-13] MEDS ORDERED: EVISTA60 M1 PO (13:45)
[2016-10-13] MEDS ORDERED: PATIENT'S PHARMACY (13:45)
[2016-10-13 13:46] LABS: ALBUMIN SERUM 3.7 g/dL (3.5-5.0); BILIRUBIN, DIRECT 0.1 mg/dL (0.0-0.2); BILIRUBIN,INDIRECT 0.7 mg/dL (0.0-0.9); BILIRUBIN,TOTAL 0.8 mg/dL (0.2-2.0); CALCIUM SERUM 10.1 mg/dL (8.4-10.2); CREATININE SERUM 0.9 mg/dL (0.6-1.4); GLOM FILT RATE Estimated 61.3 mL/min (>60); PROTEIN TOTAL SERUM 7.8 g/dL (6.0-8.3)
[2016-10-13] MEDS ORDERED: METFORMIN PO (13:46)
[2016-10-13] MEDS ORDERED: TRICOR145 MG PO (13:46)
[2016-10-13] MEDS ORDERED: ZOLOFT100 MG PO (13:46)
[2016-10-13] MEDS ORDERED: ACETAMINOPHEN PO (13:47)
[2016-10-13] MEDS ORDERED: VITAMIN D250000 UNIT PO (13:47)
[2016-10-13] MEDS ORDERED: VITAMIN D2400 UNIT PO (13:47)
[2016-10-14 14:18] LABS: URINE APPEARANCE CLEAR; URINE BILIRUBIN NEG (NEG); URINE BLOOD NEG (NEG); URINE COLOR YELLOW; URINE GLUCOSE NEG (NEG); URINE KETONE NEG (NEG); URINE LEUKOCYTE ESTERASE NEG (NEG); URINE NITRATE NEG (NEG); URINE PH 6.5 (5-8); URINE PROTEIN NEG (NEG); URINE SPECIFIC GRAVITY 1.014 (1.003-1.035); URINE UROBILINOGEN 0.2 MG/DL (NEG)
[2016-10-14 16:31] LABS: CK TOTAL 31 IU/L (26-140)
[2016-10-14 21:38] LABS: CK TOTAL 33 IU/L (26-140)
[2016-10-15 05:59] LABS: HEMATOCRIT 36.5 % (35.0-45.0); HEMOGLOBIN 12.6 gm/dL (12.0-16.0); MEAN CELL VOLUME 94.6 FL (83-96); MEAN CORPUSCULAR HEMOGLOBIN 32.6 PG (28-34); MEAN CORPUSCULAR HGB CONC 34.5 g/dL (30-36); MEAN PLATELET VOLUME 8.9 FL (6.5-11.5); RED BLOOD COUNT 3.86 X10e (3.90-5.30); RED CELL DISTRIBUTION WIDTH 13.4 % (11.0-15.5); WHITE BLOOD COUNT 6.9 X10e3 (4.0-10.5)
[2016-10-15 06:48] LABS: BUN/CREATININE RATIO 38.57; CALCIUM SERUM 10.1 mg/dL (8.4-10.2); CREATININE SERUM 0.7 mg/dL (0.6-1.4); POTASSIUM 5.2 mmol/L (3.5-5.1)
[2016-10-15 11:09] LABS: LEGIONELLA AG URINE NEG (NEG)
[2016-10-16 04:28] LABS: ALBUMIN SERUM 3.2 g/dL (3.5-5.0); BILIRUBIN,TOTAL 0.2 mg/dL (0.2-2.0); BUN/CREATININE RATIO 45.71; CALCIUM SERUM 9.5 mg/dL (8.4-10.2); CREATININE SERUM 0.7 mg/dL (0.6-1.4); POTASSIUM 4.6 mmol/L (3.5-5.1); PROTEIN TOTAL SERUM 6.5 g/dL (6.0-8.3)
[2016-10-16 05:15] LABS: HEMOGLOBIN 11.5 gm/dL (12.0-16.0); MEAN CORPUSCULAR HEMOGLOBIN 31.6 PG (28-34); MEAN PLATELET VOLUME 9.2 FL (6.5-11.5); RED BLOOD COUNT 3.66 X10e (3.90-5.30)
[2016-10-16] MEDS ORDERED: COMBIVENT U/D3 M1 INH (10:19)
[2016-10-16] MEDS ORDERED: ACETAMINOPHEN500 M7 PO (10:20)
[2016-10-16] MEDS ORDERED: PREDNISONE PO (10:21)
[2016-10-16] MEDS ORDERED: ACETAMINOPHEN650 M3 PO (10:31)
[2016-10-16] MEDS ORDERED: ACETAMINOPHEN500 M3 PO (10:33)
[2016-10-18 23:59] LABS: ANA SCREEN Positive (Negative); ANA TITER COMMENT Has been added (()); NUCLEAR PATTERN (ANA) Homogeneous (())
== END 2016-10-16 14:18 | disposition home or self-care (01) | DRG 196 ==
LOC: CED 11:57 → CEDOF 14:52 → CED 15:40 → CEDOF 15:40 → C3A PCU 20:46 → CEDOF 20:46 → C3A PCU 10-14 07:50
PROVIDERS: Emergency Medicine; Family Medicine; Internal Medicine
PROC: B24BYZZ Ultrasonography of Heart with Aorta using Other Contrast (ICD-10-PCS; principal; 2016-10-15)
DX: J84.89 Other specified interstitial pulmonary diseases (principal); J96.21 Acute and chronic respiratory failure with hypoxia; E11.9 Type 2 diabetes mellitus without complications; I10 Essential (primary) hypertension; E78.5 Hyperlipidemia, unspecified; G47.33 Obstructive sleep apnea (adult) (pediatric); E03.9 Hypothyroidism, unspecified; M19.90 Unspecified osteoarthritis, unspecified site; Z88.6 Allergy status to analgesic agent; Z91.013 Allergy to seafood; Z79.84 Long term (current) use of oral hypoglycemic drugs
CPT/HCPCS: 36415; 71010; 71250; 80048; 80053; 80076; 81003; 82164; 82308; 82550; 82553; 82947; 83605; 83880; 84484; 85025; 85027; 85652; 86038; 86039; 86430; 87040; 87449; 87899; 93005; 93306; 94640; 94760; 97116; 97161; 97165; 99285; G8978-GP; G8979-GP; G8980-GP; G8987-GO; G8988-GO; G8989-GO; J0456; J0696; J1815; J2920